=== PATIENT | female | born 1995 | race African-American/Black ===

== ENCOUNTER 2019-08-04 16:41 | Emergency (ER) | payer OTHER, SELFPAY ==
[~2019-08-04] VITALS: Ht 152.4 cm; Wt 68.9 kg
[2019-08-04] MEDS ORDERED: NEOSPORIN OINT 0.9 GM PKT (FLOOR STOCK) TOP ONE (19:45)
[2019-08-04 19:47] VITALS: BP 133/84
== END 2019-08-04 19:48 | disposition home or self-care (01) ==
LOC: M ED 16:41
DX: L98.9 Disorder of the skin and subcutaneous tissue, unspecified (principal)

== ENCOUNTER 2019-10-24 01:09 | Emergency (ER) | payer OTHER ==
[~2019-10-24] VITALS: Ht 152.4 cm; Wt 72.7 kg
[2019-10-24] MEDS ORDERED: KETOROLAC 60 MG/2 ML VIAL (J1885) IM ONE (03:00)
[2019-10-24 03:17] LABS: BASO % 0.3 % (0.0-1.0); EOS # 0.1 10^3/uL (0.0-0.5); EOS % 0.6 % (0.0-3.0); HEMATOCRIT 35.5 % (36.0-47.0); HEMOGLOBIN 12.1 g/dl (12.0-15.5); LYMPH # 2.9 10^3/uL (1.5-5.0); LYMPH % 23.8 % (24.0-44.0); MEAN CORPUSCULAR HEMOGLOBIN 26.9 pg (27.0-33.0); MEAN CORPUSCULAR HGB CONC 34.1 g/dl (32.0-36.5); MEAN CORPUSCULAR VOLUME 79.1 fl (80.0-96.0); MONO # 0.7 10^3/uL (0.0-0.8); MONO % 5.8 % (0.0-5.0); NEUTROPHILS # 8.5 10^3/uL (1.5-8.5); NEUTROPHILS % 69.1 % (36.0-66.0); PLATELET COUNT, AUTOMATED 340 10^3/uL (150-450); RED BLOOD COUNT 4.49 10^6/uL (4.00-5.40); WHITE BLOOD COUNT 12.4 10^3/uL (4.0-10.0)
[2019-10-24 04:13] LABS: BLOOD UREA NITROGEN 9 MG/DL (7-18); CALCIUM LEVEL 9.2 MG/DL (8.5-10.1); CARBON DIOXIDE LEVEL 25 MEQ/L (21-32); CHLORIDE LEVEL 105 MEQ/L (98-107); CK-MB VALUE MASS 1.1 NG/ML (<3.6); CPK CREATINE PHOSPHOKINASE 212 U/L (26-192); CREATININE FOR GFR 0.83 MG/DL (0.55-1.30); GLOMERULAR FILTRATION RATE > 60.0 (>60); GLUCOSE, FASTING 98 MG/DL (70-100); MB/CK RELATIVE INDEX 0.52 (< OR =4); POTASSIUM SERUM 4.1 MEQ/L (3.5-5.1); SODIUM LEVEL 142 MEQ/L (136-145); TROPONIN I < 0.02 NG/ML (< 0.10)
[2019-10-24] MEDS ORDERED: KETO10TAB PO (04:18)
[2019-10-24 04:42] VITALS: BP 110/72
--- NOTE | 2019-10-24 09:04 | REP ---
Portable chest x-ray: Sitting AP view. History: Chest pain. Findings: EKG monitoring electrodes are seen. The lungs are well inflated and clear. Heart is not enlarged. Pulmonary vasculature is not increased. No significant bony abnormality. Impression: No acute disease. Electronically Signed by Frank Burns MD 10/24/2019 08:55 A
--- NOTE | 2019-10-24 22:08 | ECGEPIP ---
[facility] - ED Test Date: 2019-10-24 Pat Name: SRAVANTHI SARABIA Department: Room: - Gender: Female [employer]: : [id number] Requested By: BAN SÁNCHEZ Order Number: [id number] Reading MD: Raza Zacarias Measurements Intervals [place] Rate: 70 P: 58 TN: 125 QRS: -13 QRSD: 79 T: -3 QT: 393 QTc: 425 Interpretive Statements SINUS RHYTHM Delayed anterior R wave progression Nonspecific T wave abnormality Comparison tracing not on file Electronically Signed on 10-24-2019 22:07:26 EST by Raza Zacarias
== END 2019-10-24 04:44 | disposition home or self-care (01) ==
LOC: M ED 01:09
DX: R07.89 Other chest pain (principal); Z91.040 Latex allergy status; J30.89 Other allergic rhinitis
CPT/HCPCS: 36415; 36600; 71045; 80048; 82550; 82553; 82803; 84484; 85025; 93005; 96372; 99284; J1885